=== PATIENT | female | born 2000 | race Asian ===

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

== ENCOUNTER → 2021-04-24 | Outpatient (CLI) | payer MEDICAID | END | disposition home or self-care (01) | LOC: LAB 15:11 | PROVIDERS: ATTEND Nurse Practitioner Family | DX: Z20.822 Contact with and (suspected) exposure to COVID-19 (principal) | CPT/HCPCS: C9803; U0003 ==

== ENCOUNTER 2021-08-15 15:12 | Observation (INO) | payer MEDICAID ==
[~2021-08-15] VITALS: Ht 30.5 cm; Wt 0.5 kg
[2021-08-15] MEDS ORDERED: PREN-96 PO (16:19)
[2021-08-15] MEDS ORDERED: TERBUTALINE SULFATE 1 MG/ML 1ML VIAL SC STA (17:18)
[2021-08-15] MEDS ORDERED: LACTATED RINGER'S 1,000 ML IV ONE (17:30)
[2021-08-15] MEDS ORDERED: TERBUTALINE SULFATE 1 MG/ML 1ML VIAL SC SCH (18:20)
== END 2021-08-15 19:51 | disposition home or self-care (01) ==
LOC: LDRP 15:12
PROVIDERS: ADMIT Obstetrics & Gynecology; ATTEND Obstetrics & Gynecology
DX: O42.913 Preterm premature rupture of membranes, unspecified as to length of time between rupture and onset of labor, third trimester (principal); O26.893 Other specified pregnancy related conditions, third trimester; R10.2 Pelvic and perineal pain; Z3A.30 30 weeks gestation of pregnancy
CPT/HCPCS: 59025; 76815; 76817; 81002; 84112; 94760; 96360; 96361; 96372; G0378; J3105; Q0114